=== PATIENT | female | born 1935 | race Caucasian/White ===

== ENCOUNTER 2023-10-02 09:04 | Outpatient (CLI) | payer MEDICARE, MEDICAID ==
[2023-10-02] VITALS (7 sets, daily range): BP systolic 123–152; BP diastolic 55–81; PULSE 89–105; RESP 14–16; O2SAT 97–100
[~2023-10-02] VITALS: Ht 160 cm; Wt 93.9 kg
[2023-10-02] MEDS ORDERED: normal saline 500ml IV soln 500 ML IV ONE (10:20)
[2023-10-02] MEDS ORDERED: aminophylline 250mg/10ml inj. IV PRN (10:20)
[2023-10-02] MEDS ORDERED: nitroGLYCERIN 0.4mg SUBLingual tab SL PRN (10:20)
[2023-10-02] MEDS: regadenoson 0.4mg/5ml syringe IV ONE (11:15)
== END 2023-10-02 23:59 | disposition home or self-care (01) ==
LOC: RAD 09:04
PROVIDERS: ATTEND Internal Medicine Cardiovascular Disease
DX: R94.31 Abnormal electrocardiogram [ECG] [EKG] (principal)
CPT/HCPCS: 78452; 93017; A9500; J2785; J7040